=== PATIENT | male | born 2005 | race Caucasian/White ===

== ENCOUNTER 2024-08-30 11:37 | Emergency (ER) | payer MEDICAID ==
[~2024-08-30] VITALS: Ht 160 cm; Wt 59.1 kg
[2024-08-30 11:49] VITALS: BP 109/60; PULSE 69; RESP 18; TEMP 36.6; O2SAT 99
== END 2024-08-30 16:21 | disposition left against medical advice (07) ==
LOC: ER 11:37
DX: Z00.00 Encounter for general adult medical examination without abnormal findings (principal); Z53.21 Procedure and treatment not carried out due to patient leaving prior to being seen by health care provider